=== PATIENT | female | born 1960 | race Caucasian/White ===

== ENCOUNTER 2017-11-26 21:03 | Emergency (ER) | payer MEDICAID ==
[2017-11-26] MEDS ORDERED: FAMOTIDINE 20 MG TABLET PO ONE (22:22)
[2017-11-26] MEDS ORDERED: ONDANSETRON HCL INJ/PF 4 MG/2 ML SDV IV ONE (22:22)
[2017-11-26] MEDS ORDERED: NORMAL SALINE 1000 ML 1,000 ML IV ONE (22:22)
--- NOTE | 2017-11-26 22:23 | ER Document Report ---
ED GI/ - General Chief Complaint: Nausea/Vomiting/Diarrhea Stated Complaint: NAUSEA Time Seen by Provider: 11/26/17 22:09 Notes: Patient is a 57-year-old female that comes emergency department for chief complaint of abdominal pain, nausea, an episode of vomiting, 3 episodes of loose stool. Pain is in both upper and lower abdomen. She reports chills earlier, denies fever. She states she is worried she is dehydrated and will not be able to take her medications for seizures at home, she is on Keppra, she used to be on Zofran but ran out. She denies chest pain, headache, difficulty breathing, flank pain. - Related Data Allergies/Adverse Reactions: codeine Allergy (Verified 11/26/17 21:08) erythromycin base Allergy (Verified 11/26/17 21:08) oxycodone [From Percocet] Allergy (Verified 11/26/17 21:08) Penicillins Allergy (Verified 11/26/17 21:08) Past Medical History - General Information source: Patient - Social History Smoking Status: Current Some Day Smoker Frequency of alcohol use: None Lives with: Alone Family History: Reviewed & Not Pertinent Patient has suicidal ideation: No Patient has homicidal ideation: No - Past Medical History Cardiac Medical History: Reports: Hx Hypertension Neurological Medical History: Reports: Hx Seizures Renal/ Medical History: Denies: Hx Peritoneal Dialysis - Immunizations Hx Diphtheria, Pertussis, Tetanus Vaccination: Yes Review of Systems - Review of Systems Constitutional: See HPI EENT: No symptoms reported Cardiovascular: No symptoms reported Respiratory: No symptoms reported Gastrointestinal: See HPI Genitourinary: No symptoms reported Female Genitourinary: No symptoms reported Musculoskeletal: No symptoms reported Skin: No symptoms reported Hematologic/Lymphatic: No symptoms reported Neurological/Psychological: No symptoms reported Physical Exam - Vital signs Vitals: Temp Pulse Resp BP Pulse Ox 98.5 F 57 L 20 105/62 98 11/26/17 21:18 11/26/17 21:18 11/26/17 21:18 11/26/17 21:18 11/26/17 21:18 - Notes Notes: GENERAL: Alert, interacts well. No acute distress. HEAD: Normocephalic, atraumatic. EYES: Pupils equal, round, and reactive to light. Extraocular movements intact. ENT: Oral mucosa very dry, oropharyngeal exam otherwise unremarkable. NECK: Full range of motion. Supple. Trachea midline. LUNGS: Clear to auscultation bilaterally, no wheezes, rales, or rhonchi. No respiratory distress. HEART: Regular rate and rhythm. Borderline bradycardia. No murmur ABDOMEN: Soft, non-tender. Non-distended. Bowel sounds present in all 4 quadrants. EXTREMITIES: Moves all 4 extremities spontaneously. No edema, normal radial and dorsalis pedis pulses bilaterally. No cyanosis. BACK: no cervical, thoracic, lumbar midline tenderness. No saddle anesthesia, normal distal neurovascular exam. NEUROLOGICAL: Alert and oriented x3. Normal speech. [cranial nerves II through XII grossly intact]. PSYCH: Normal affect, normal mood. SKIN: Warm, dry, normal turgor. No rashes or lesions noted. Course - Re-evaluation Re-evalutation: Patient does have very dry mucous membranes, however she is alert, very talkative, smiling, well-appearing. Soft benign abdomen. Unremarkable examination otherwise. No tachycardia, hypotension, or fever. CBC unremarkable, chemistry unremarkable except for mildly elevated BUN, creatinine is normal. Urinalysis shows elevated specific gravity but is unremarkable otherwise. On reevaluation patient states she is feeling much better, she is tolerating p.o. without any difficulty, asymptomatic. Clinical picture most suggestive of viral syndrome. Patient was unable to provide stool sample for testing. Very low suspicion of acute abdomen based on her exam, no other complaints, otherwise unremarkable exam. Providing with medications, discussed expectations and return precautions, discussed follow-up. Patient states understanding and agreement. - Vital Signs Vital signs: Temp Pulse Resp BP Pulse Ox 98.5 F 57 L 20 105/62 98 11/26/17 21:18 11/26/17 21:18 11/26/17 21:18 11/26/17 21:18 11/26/17 21:18 - Laboratory Result Diagrams: 11/26/17 22:55 11/26/17 22:55 Laboratory results interpreted by me: 11/26/17 11/26/17 11/26/17 22:55 22:55 22:55 RDW 14.3 H Seg Neutrophils % 86.1 H Lymphocytes % 7.6 L Chloride 108 H Carbon Dioxide 20 L Glucose 113 H Urine Protein 30 H Urine Urobilinogen 2.0 H Discharge - Discharge Clinical Impression: Nausea vomiting and diarrhea, Dehydration Condition: Stable Disposition: HOME, SELF-CARE Additional Instructions: Your workup is most suggestive of dehydration from viral illness. This should resolve with time. Take Zofran as prescribed, take Pepcid, start with bland food and slowly progress. Follow-up with primary care. Return if you worsen including spiking fever, uncontrolled vomiting, severe abdominal pain, swelling of the abdomen, or any other concerning or worsening symptoms. Prescriptions: Ondansetron [Zofran Odt 4 mg Tablet] 1 - 2 tab PO Q4H PRN #20 tab.rapdis PRN Reason: For Nausea/Vomiting Referrals: SHABBIR CAVRAJAL MD [[facility]] - Follow up as needed
[2017-11-26 23:16] LABS: ABSOLUTE EOSINOPHILS # (AUTO) 0.1 10^3/uL (0.0-0.6); ABSOLUTE LYMPHOCYTES (AUTO) 0.7 10^3/uL (0.5-4.7); ABSOLUTE MONOCYTES (AUTO) 0.4 10^3/uL (0.1-1.4); ABSOLUTE NEUT (AUTO) 7.8 10^3/uL (1.7-8.2); BASOPHILS % (AUTO) 0.4 % (0-2); EOSINOPHILS % (AUTO) 1.5 % (0-6); HEMATOCRIT 40.2 % (36.0-47.0); HEMOGLOBIN 13.7 g/dL (12.0-15.5); LYMPHOCYTES % (AUTO) 7.6 % (13-45); MEAN CORPUSCULAR HEMOGLOBIN 30.9 pg (27.0-33.4); MEAN CORPUSCULAR HGB CONC 34.1 g/dL (32.0-36.0); MEAN CORPUSCULAR VOLUME 91 fl (80-97); MONOCYTES % (AUTO) 4.4 % (3-13); PLATELET COUNT 269 10^3/uL (150-450); RED BLOOD COUNT 4.44 10^6/uL (3.72-5.28); RED CELL DISTRIBUTION WIDTH 14.3 % (11.5-14.0); SEGMENTED NEUTROPHILS % (AUTO) 86.1 % (42-78); TOTAL CELLS COUNTED % (AUTO) 100 %; WHITE BLOOD COUNT 9.1 10^3/uL (4.0-10.5)
[2017-11-26 23:31] LABS: ALANINE AMINOTRANSFERASE 42 U/L (9-52); ALKALINE PHOSPHATASE 86 U/L (38-126); ANION GAP 14 (5-19); ASPARTATE AMINO TRANSFERASE 28 U/L (14-36); BILIRUBIN,DIRECT 0.2 mg/dL (0.0-0.4); BILIRUBIN,TOTAL 0.6 mg/dL (0.2-1.3); BLOOD UREA NITROGEN 13 mg/dL (7-20); CALCIUM 9.3 mg/dL (8.4-10.2); CARBON DIOXIDE 20 mmol/L (22-30); CHLORIDE 108 mmol/L (98-107); GLUCOSE 113 mg/dL (75-110); LIPASE 49.1 U/L (23-300); POTASSIUM 3.8 mmol/L (3.6-5.0); TOTAL PROTEIN 6.9 g/dL (6.3-8.2)
[2017-11-26 23:32] LABS: APPEARANCE,URINE SLIGHTLY-CLOUDY; BILIRUBIN,URINE NEGATIVE (NEGATIVE); COLOR,URINE YELLOW; GLUCOSE, URINE NEGATIVE (NEGATIVE); KETONES,URINE NEGATIVE (NEGATIVE); LEUKOCYTE ESTERASE,URINE NEGATIVE (NEGATIVE); NITRITE,URINE NEGATIVE (NEGATIVE); PROTEIN,URINE 30 mg/dL (NEGATIVE); URINE SPECIFIC GRAVITY 1.025
[2017-11-26] MEDS ORDERED: NORMAL SALINE 1000 ML 500 ML IV ONE (23:34)
[2017-11-27] MEDS ORDERED: ONDANSETRON ODT 4 MG TAB (6 TAB/ER DISP) PO PRN (01:02)
[2017-11-27 02:43] VITALS: BP 101/74
== END 2017-11-27 02:22 | disposition home or self-care (01) ==
LOC: ER 21:03
DX: R11.2 Nausea with vomiting, unspecified (principal); R19.7 Diarrhea, unspecified; E86.0 Dehydration; R10.9 Unspecified abdominal pain; F17.200 Nicotine dependence, unspecified, uncomplicated; I10 Essential (primary) hypertension; Z88.6 Allergy status to analgesic agent; Z88.3 Allergy status to other anti-infective agents
CPT/HCPCS: 99284; 96361; 96374; 36415; 83690; 85025; 80053; 81001; J3490; J2405; J7030 ×2

== ENCOUNTER 2018-01-18 21:48 | Emergency (ER) | payer MEDICAID, OTHER ==
[2018-01-18] MEDS ORDERED: ASPIRIN 81 MG TABLET, CHEWABLE PO ONE (22:43)
--- NOTE | 2018-01-18 22:52 | ER Document Report ---
ED General - General Chief Complaint: Anxiety Stated Complaint: CHEST PAIN Time Seen by Provider: 01/18/18 22:09 Mode of Arrival: Stretcher Information source: Patient TRAVEL OUTSIDE OF THE [place] IN LAST 30 DAYS: No - HPI Patient complains to provider of: Chest pain Onset: Just prior to arrival Onset/Duration: Sudden Quality of pain: Achy Severity: Mild Associated symptoms: None Similar symptoms previously: Yes Recently seen / treated by doctor: No Notes: Patient is a 57-year-old female presenting to the emergency room today complaining of chest pain that started while having an argument with her sister , when I asked patient what brought her to the emergency room today she started by telling me that back in April she had a knee injury, she went on to provide me great detail as to how it was that she was living in a second floor apartment but because of the knee injury had to move to a first floor apartment and then had some issues with neighbors which forced her to move in with her ex- [id number], when she had an interaction with her niece today apparently her sister started an argument with her regarding this, patient had to be redirected several times to provide me details related to her presentation in the emergency department today, she does report that she has had several episodes of similar chest pain in the past that are brought on by stress or anxiety related to having an argument with someone, she denies any symptoms at the present time, she does tell me that she was previously on a medication secondary to "an irregular heartbeat", but she has since stopped taking that medication because it made her heart rate too low, she denies any shortness of breath today, no nausea, vomiting or diarrhea, no fever or chills, no cough, cold or congestion - Related Data Allergies/Adverse Reactions: codeine Allergy (Verified 01/18/18 21:54) erythromycin base Allergy (Verified 01/18/18 21:54) oxycodone [From Percocet] Allergy (Verified 01/18/18 21:54) Penicillins Allergy (Verified 01/18/18 21:54) Past Medical History - General Information source: Patient - Social History Smoking Status: Current Every Day Smoker Chew tobacco use (# tins/day): No Frequency of alcohol use: None Drug Abuse: None Family History: Reviewed & Not Pertinent Patient has suicidal ideation: No Patient has homicidal ideation: No - Past Medical History Cardiac Medical History: Reports: Hx Hypertension Neurological Medical History: Reports: Hx Seizures Renal/ Medical History: Denies: Hx Peritoneal Dialysis Past Surgical History: Reports: Hx Orthopedic Surgery - left knee - Immunizations Hx Diphtheria, Pertussis, Tetanus Vaccination: Yes Review of Systems - Review of Systems Constitutional: No symptoms reported EENT: No symptoms reported Cardiovascular: See HPI Respiratory: No symptoms reported Gastrointestinal: No symptoms reported Genitourinary: No symptoms reported Female Genitourinary: No symptoms reported Musculoskeletal: No symptoms reported Skin: No symptoms reported Hematologic/Lymphatic: No symptoms reported Neurological/Psychological: See HPI -: Yes All other systems reviewed and negative Physical Exam - Vital signs Vitals: Resp Pulse Ox 19 94 01/18/18 21:52 01/18/18 21:52 Interpretation: Normal - General General appearance: Appears well, Alert - HEENT Head: Normocephalic, Atraumatic Eyes: Normal Pupils: PERRL - Respiratory Respiratory status: No respiratory distress Chest status: Nontender Breath sounds: Normal Chest palpation: Normal - Cardiovascular Rhythm: Regular Heart sounds: Normal auscultation Murmur: No - Abdominal Inspection: Normal Distension: No distension Bowel sounds: Normal Tenderness: Nontender Organomegaly: No organomegaly - Back Back: Normal, Nontender - Extremities General upper extremity: Normal inspection, Nontender, Normal color, Normal ROM , Normal temperature General lower extremity: Normal inspection, Nontender, Normal color, Normal ROM , Normal temperature, Normal weight bearing. No: Char's sign - Neurological Neuro grossly intact: Yes Cognition: Normal Orientation: AAOx4 Maximus Coma Scale Eye Opening: Spontaneous [place] Coma Scale Verbal: Oriented Maximus Coma Scale Motor: Obeys Commands Maximus Coma Scale Total: 15 Speech: Normal Motor strength normal: LUE, RUE, LLE, RLE Sensory: Normal - Psychological Associated symptoms: Tangential speech - Skin Skin Temperature: Warm Skin Moisture: Dry Skin Color: Normal Course - Re-evaluation Re-evalutation: 01/19/18 00:19 Patient resting comfortably with stable vital signs, she has had no further episodes of chest pain since being in the emergency department, symptoms likely secondary to anxiety or stress due to argument with her sister, patient will be discharged with instructions for follow-up and advised to return if any additional concerns, patient acknowledges understanding and agreement with this plan - Vital Signs Vital signs: Temp Pulse Resp BP Pulse Ox 16 114/74 96 01/18/18 22:01 01/18/18 22:01 01/18/18 22:01 - Laboratory Result Diagrams: 01/18/18 23:15 01/18/18 23:15 Laboratory results interpreted by me: 01/18/18 23:15 RDW 14.3 H - Diagnostic Test Radiology reviewed: Image reviewed, Reports reviewed - EKG Interpretation by Me EKG shows normal: Sinus rhythm Rate: Normal Rhythm: NSR Discharge - Discharge Clinical Impression: Chest pain Qualifiers: Chest pain type: unspecified Qualified Code(s): R07.9 - Chest pain, unspecified Condition: Stable Disposition: HOME, SELF-CARE Instructions: Anxiety ([facility]), Chest Pain of Unclear Cause ([facility]) Additional Instructions: Follow up with your primary care provider in one to 2 days. Return to the emergency room immediately if symptoms worsen or any additional concerns.
[2018-01-18 23:24] LABS: ABSOLUTE EOSINOPHILS # (AUTO) 0.1 10^3/uL (0.0-0.6); ABSOLUTE LYMPHOCYTES (AUTO) 1.9 10^3/uL (0.5-4.7); ABSOLUTE MONOCYTES (AUTO) 0.4 10^3/uL (0.1-1.4); ABSOLUTE NEUT (AUTO) 5.3 10^3/uL (1.7-8.2); BASOPHILS % (AUTO) 0.6 % (0-2); EOSINOPHILS % (AUTO) 1.7 % (0-6); HEMATOCRIT 38.2 % (36.0-47.0); LYMPHOCYTES % (AUTO) 24.6 % (13-45); MEAN CORPUSCULAR HEMOGLOBIN 30.7 pg (27.0-33.4); MEAN CORPUSCULAR VOLUME 90 fl (80-97); MONOCYTES % (AUTO) 5.5 % (3-13); PLATELET COUNT 284 10^3/uL (150-450); RED BLOOD COUNT 4.24 10^6/uL (3.72-5.28); RED CELL DISTRIBUTION WIDTH 14.3 % (11.5-14.0); SEGMENTED NEUTROPHILS % (AUTO) 67.6 % (42-78); TOTAL CELLS COUNTED % (AUTO) 100 %; WHITE BLOOD COUNT 7.8 10^3/uL (4.0-10.5)
[2018-01-18 23:37] LABS: ALANINE AMINOTRANSFERASE 38 U/L (9-52); ALBUMIN 4.4 g/dL (3.5-5.0); ALKALINE PHOSPHATASE 90 U/L (38-126); ANION GAP 11 (5-19); ASPARTATE AMINO TRANSFERASE 30 U/L (14-36); BILIRUBIN,DIRECT 0.1 mg/dL (0.0-0.4); BILIRUBIN,TOTAL 0.4 mg/dL (0.2-1.3); BLOOD UREA NITROGEN 10 mg/dL (7-20); CALCIUM 9.7 mg/dL (8.4-10.2); CARBON DIOXIDE 27 mmol/L (22-30); CHLORIDE 102 mmol/L (98-107); CREATINE KINASE 55 U/L (30-135); GLUCOSE 84 mg/dL (75-110); POTASSIUM 4.4 mmol/L (3.6-5.0); SODIUM 140.3 mmol/L (137-145); TOTAL PROTEIN 7.2 g/dL (6.3-8.2)
--- NOTE | 2018-01-18 23:42 | RADIOLOGY REPORT (SQ) ---
EXAM DESCRIPTION: XR CHEST 1 VIEW COMPLETED DATE/TME: 01/18/2018 22:43 EXAM DESCRIPTION: Single view of the chest CLINICAL HISTORY: cp COMPARISON: None. FINDINGS: Single frontal view of the chest. The cardiomediastinal silhouette has normal size and contour. No consolidation, pneumothorax, or pleural effusion. Dextroconvex scoliosis of the thoracic spine. Leads overlie the chest. Upper abdominal soft tissues are unremarkable. IMPRESSION: 1. No acute pulmonary process identified.
[2018-01-18 23:53] LABS: CREATINE KINASE MB 1.03 ng/mL (<4.55)
[2018-01-18 23:55] LABS: TROPONIN I < 0.012 ng/mL
[2018-01-19 01:10] VITALS: BP 128/85
--- NOTE | 2018-01-19 07:24 | EKG REPORT ---
SEVERITY:- NORMAL ECG - SINUS RHYTHM : Confirmed by: Otis Webber MD 19-Jan-2018 07:23:32
== END 2018-01-19 01:00 | disposition home or self-care (01) ==
LOC: ER 21:48
DX: R07.9 Chest pain, unspecified (principal); F41.9 Anxiety disorder, unspecified; F17.200 Nicotine dependence, unspecified, uncomplicated; I10 Essential (primary) hypertension
CPT/HCPCS: 36415; 71045; 80053; 82550; 82553; 84484; 85025; 93005; 93010; 99284

== ENCOUNTER → 2018-05-18 | Outpatient (CLI) | payer MEDICAID, OTHER | LOC: NEURO 12:41 | PROVIDERS: ATTEND Pediatrics | DX: G40.802 Other epilepsy, not intractable, without status epilepticus (principal); Z53.8 Procedure and treatment not carried out for other reasons ==

== ENCOUNTER 2018-11-15 06:25 | Day surgery (SDC) | payer MEDICAID ==
[2018-11-08 09:22] LABS: APPEARANCE,URINE CLEAR; BILIRUBIN,URINE NEGATIVE (NEGATIVE); COLOR,URINE YELLOW; GLUCOSE, URINE NEGATIVE (NEGATIVE); KETONES,URINE NEGATIVE (NEGATIVE); LEUKOCYTE ESTERASE,URINE NEGATIVE (NEGATIVE); NITRITE,URINE NEGATIVE (NEGATIVE); PROTEIN,URINE NEGATIVE (NEGATIVE); URINE SPECIFIC GRAVITY 1.006; UROBILINOGEN,URINE NEGATIVE mg/dL (<2.0)
[2018-11-08 09:31] LABS: HEMATOCRIT 37.8 % (36.0-47.0); HEMOGLOBIN 12.8 g/dL (12.0-15.5); MEAN CORPUSCULAR HEMOGLOBIN 32.1 pg (27.0-33.4); MEAN CORPUSCULAR HGB CONC 33.7 g/dL (32.0-36.0); MEAN CORPUSCULAR VOLUME 95 fl (80-97); PLATELET COUNT 279 10^3/uL (150-450); RED BLOOD COUNT 3.97 10^6/uL (3.72-5.28); RED CELL DISTRIBUTION WIDTH 14.4 % (11.5-14.0); WHITE BLOOD COUNT 3.9 10^3/uL (4.0-10.5)
--- NOTE | 2018-11-08 09:45 | RADIOLOGY REPORT (SQ) ---
EXAM DESCRIPTION: CHEST PA/LATERAL COMPLETED DATE/TIME: 11/08/2018 9:34 am REASON FOR STUDY: PREOP COMPARISON: 07/03/2018 EXAM PARAMETERS: NUMBER OF VIEWS: two views TECHNIQUE: Digital Frontal and Lateral radiographic views of the chest acquired. RADIATION DOSE: NA LIMITATIONS: none FINDINGS: LUNGS AND PLEURA: No opacities, masses or pneumothorax. No pleural effusion. MEDIASTINUM AND HILAR STRUCTURES: No masses or contour abnormalities. HEART AND VASCULAR STRUCTURES: Heart normal size. No evidence for failure. BONES: Dextroconvex thoracic curvature, stable. No acute bony findings. HARDWARE: None in the chest. OTHER: No other significant finding. IMPRESSION: No evidence of acute cardiopulmonary process. TECHNICAL DOCUMENTATION: JOB ID: [id number] [employer]- All Rights Reserved Reading location - IP/workstation name: [email or web address]
[2018-11-08 10:02] LABS: ANION GAP 9 (5-19); BLOOD UREA NITROGEN 14 mg/dL (7-20); CALCIUM 9.4 mg/dL (8.4-10.2); CARBON DIOXIDE 29 mmol/L (22-30); CHLORIDE 100 mmol/L (98-107); GLUCOSE 76 mg/dL (75-110); POTASSIUM 4.9 mmol/L (3.6-5.0)
--- NOTE | 2018-11-08 12:16 | EKG REPORT ---
SEVERITY:- NORMAL ECG - SINUS RHYTHM : Confirmed by: Otis Webber MD 08-Nov-2018 12:16:02
[~2018-11-15 06:25] MED LIST: CLINDAMYCIN 600 MG/D5W RTU 600 MG/50 ML RTUPB IV PRN; LACTATED RINGERS 1000 ML IV PRN; LIDOCAINE 0.5% INJ-PF (5 MG/ML) 50 ML SDV SUBCUT PRN
[2018-11-15] MEDS ORDERED: CLINDAMYCIN 600 MG/D5W RTU 600 MG/50 ML RTUPB IV ONE (06:48)
[2018-11-15] MEDS ORDERED: MIDAZOLAM 2 MG/2 ML INJ ONE (07:04)
[2018-11-15] MEDS ORDERED: DEXAMETHASONE SOD PHOSPHATE INJ 4 MG/1 ML VIAL ONE (07:04)
[2018-11-15] MEDS ORDERED: ONDANSETRON HCL INJ/PF 4 MG/2 ML SDV ONE (07:04)
[2018-11-15] MEDS ORDERED: FENTANYL CITRATE INJ/PF 100 MCG/2 ML AMPUL ONE (07:04)
[2018-11-15] MEDS ORDERED: PROPOFOL INJ 200 MG/20 ML VIAL IV ONE (07:04)
[2018-11-15] MEDS ORDERED: BUPIVACAINE HCL 0.5%-EPI 1:200000 INJ/PF 30 ML VIAL ONE (08:23)
[2018-11-15] MEDS ORDERED: LIDOCAINE 1% INJ-PF (10 MG/ML) 30 ML SDV ONE (09:43)
[2018-11-15] MEDS ORDERED: MEPERIDINE HCL/PF INJ 25 MG/1 ML DISP.SYRIN IV PRN (09:46)
[2018-11-15] MEDS ORDERED: PROMETHAZINE HCL INJ 25 MG/1 ML VIAL IV PRN ×2 (09:46)
[2018-11-15] MEDS ORDERED: FENTANYL CITRATE INJ/PF 100 MCG/2 ML AMPUL IV PRN ×3 (09:46)
[2018-11-15] MEDS ORDERED: DIPHENHYDRAMINE HCL 50 MG/ML VIAL IV PRN (09:46)
--- NOTE | 2018-11-15 10:01 | Discharge Summary ---
Discharge Summary (SDC) - Discharge Final Diagnosis: Retained hardware left patella Date of Surgery: 11/15/18 Discharge Date: 11/15/18 Condition: Good Treatment or Instructions: Weightbearing as tolerated ambulation. Remove compressive wrap on Tuesday. Underlying OpSite dressing can be left in place until you return to the office. Prescriptions: Oxycodone HCl/Acetaminophen [Percocet 5-325 mg Tablet] 1 tab PO Q6 PRN #25 tab PRN Reason: Referrals: SHAYAN CALIX MD [Primary Care Provider] - Discharge Diet: As Tolerated, Regular Respiratory Treatments at Home: Deep Breathing/Coughing Discharge Activity: Balance Activity w/Rest, No tub bath Home Care Assistance: None Needed Report the Following to Your Physician Immediately: Shortness of Breath, Fever over 101 Degrees, Drainage-Foul Smelling
--- NOTE | 2018-11-15 10:03 | Operative Report ---
Operative Report DATE OF SURGERY: 11/15/18 PREOPERATIVE DIAGNOSIS: Retained hardware left knee status post ORIF of a jasmine la fracture with overlying skin erosion OPERATION: Hardware removal left knee SURGEON: LOLA FIGUEROA ANESTHESIA: LMAC TISSUE REMOVED OR ALTERED: Hardware to CSS ESTIMATED BLOOD LOSS: Minimal PROCEDURE: With the patient supine on the operating table left lower extremities prepped and draped in sterile fashion. The skin overlying the left patella is infiltrated with a combination of Marcaine, Xylocaine, and epinephrine in line with the previous midline surgical approach to the knee. A longitudinal incision was then made and blunt dissection was used to expose the proximal and distal aspects of the transosseous K wires. The proximal aspect of the K wire that contains the band is cut with a pin cutter and then the pins are removed through the distal aspect of the patella. The [id number] wire is then cut in half and removed uneventfully. At this point the wound is irrigated. Is closed using interrupted Vicryl followed by nylon. A sterile compressive dressing was applied and the patient's return to the PACU in satisfactory condi tion.
--- NOTE | 2018-11-15 12:06 | RADIOLOGY REPORT (SQ) ---
EXAM DESCRIPTION: NO CHG FLUORO; KNEE LEFT 2 VIEWS COMPLETED DATE/TIME: 11/15/2018 11:15 am REASON FOR STUDY: LEFT KNEE HARDWARE REMOVAL ASST WITH FLUORO IN OR S82.012A DISPLACED OSTEOCHONDRA L FRACTURE OF LEFT PATELLA, I COMPARISON: None. FLUOROSCOPY TIME: 9 seconds 2 images saved to PACS. TECHNIQUE: Intra-operative images acquired during surgical procedure to evaluate progress. NUMBER OF IMAGES: 2 LIMITATIONS: None. FINDINGS: Intraoperative fluoroscopic images obtained to evaluate surgical progress. Please see ope rative report for detailed description of the procedure. IMPRESSION: IMAGE(S) OBTAINED DURING PROCEDURE. COMMENT: Quality ID [id number]: Final reports for procedures using fluoroscopy that document radiation exp osure indices, or exposure time and number of fluorographic images (if radiation exposure indices are not available) Please consult full operative report of the attending physician for description of the procedure. TECHNICAL DOCUMENTATION: JOB ID: [id number] [employer]- All Rights Reserved Reading location - IP/workstation name: [email or web address]
--- NOTE | 2018-11-15 12:06 | RADIOLOGY REPORT (SQ) ---
EXAM DESCRIPTION: NO CHG FLUORO; KNEE LEFT 2 VIEWS COMPLETED DATE/TIME: 11/15/2018 11:15 am REASON FOR STUDY: LEFT KNEE HARDWARE REMOVAL ASST WITH FLUORO IN OR S82.012A DISPLACED OSTEOCHONDRA L FRACTURE OF LEFT PATELLA, I COMPARISON: None. FLUOROSCOPY TIME: 9 seconds 2 images saved to PACS. TECHNIQUE: Intra-operative images acquired during surgical procedure to evaluate progress. NUMBER OF IMAGES: 2 LIMITATIONS: None. FINDINGS: Intraoperative fluoroscopic images obtained to evaluate surgical progress. Please see ope rative report for detailed description of the procedure. IMPRESSION: IMAGE(S) OBTAINED DURING PROCEDURE. COMMENT: Quality ID 145: Final reports for procedures using fluoroscopy that document radiation exp osure indices, or exposure time and number of fluorographic images (if radiation exposure indices are not available) Please consult full operative report of the attending physician for description of the procedure. TECHNICAL DOCUMENTATION: JOB ID: [id number] [employer]- All Rights Reserved Reading location - IP/workstation name: [email or web address]
[2018-11-15 13:35] VITALS: BP 120/57
== END 2018-11-15 12:10 | disposition home or self-care (01) ==
LOC: EEVIPCON 06:25 → OROUT 06:25
PROVIDERS: ATTEND Orthopaedic Surgery
DX: T84.84XA Pain due to internal orthopedic prosthetic devices, implants and grafts, initial encounter (principal); Y83.8 Other surgical procedures as the cause of abnormal reaction of the patient, or of later complication, without mention of misadventure at the time of the procedure; I10 Essential (primary) hypertension; G40.909 Epilepsy, unspecified, not intractable, without status epilepticus; F17.210 Nicotine dependence, cigarettes, uncomplicated; I49.9 Cardiac arrhythmia, unspecified; Z79.82 Long term (current) use of aspirin; Z79.899 Other long term (current) drug therapy; Z86.73 Personal history of transient ischemic attack (TIA), and cerebral infarction without residual deficits
CPT/HCPCS: 93005; 36415; 85027; 80048; 81001; 71046; 73560; 93010; 01480; 20680; J2250; S0077; J3490 ×2; J1100; J2405; J2704; J3010

== ENCOUNTER → 2018-11-27 | Outpatient (CLI) | payer MEDICAID ==
[2018-11-27 12:58] LABS: ABSOLUTE EOSINOPHILS # (AUTO) 0.1 10^3/uL (0.0-0.6); ABSOLUTE LYMPHOCYTES (AUTO) 1.7 10^3/uL (0.5-4.7); ABSOLUTE MONOCYTES (AUTO) 0.3 10^3/uL (0.1-1.4); ABSOLUTE NEUT (AUTO) 3.9 10^3/uL (1.7-8.2); BASOPHILS % (AUTO) 0.3 % (0-2); HEMATOCRIT 36.7 % (36.0-47.0); HEMOGLOBIN 12.4 g/dL (12.0-15.5); LYMPHOCYTES % (AUTO) 28.8 % (13-45); MEAN CORPUSCULAR HEMOGLOBIN 31.8 pg (27.0-33.4); MEAN CORPUSCULAR HGB CONC 33.7 g/dL (32.0-36.0); MEAN CORPUSCULAR VOLUME 94 fl (80-97); MONOCYTES % (AUTO) 5.6 % (3-13); PLATELET COUNT 235 10^3/uL (150-450); RED BLOOD COUNT 3.89 10^6/uL (3.72-5.28); RED CELL DISTRIBUTION WIDTH 14.3 % (11.5-14.0); SEGMENTED NEUTROPHILS % (AUTO) 64.3 % (42-78); TOTAL CELLS COUNTED % (AUTO) 100 %
[2018-11-27 13:20] LABS: ALBUMIN 4.2 g/dL (3.5-5.0); ALKALINE PHOSPHATASE 108 U/L (38-126); ANION GAP 10 (5-19); ASPARTATE AMINO TRANSFERASE 34 U/L (14-36); BILIRUBIN,DIRECT 0.3 mg/dL (0.0-0.4); BILIRUBIN,TOTAL 0.4 mg/dL (0.2-1.3); BLOOD UREA NITROGEN 12 mg/dL (7-20); CALCIUM 9.3 mg/dL (8.4-10.2); CARBON DIOXIDE 27 mmol/L (22-30); CHLORIDE 102 mmol/L (98-107); GLUCOSE 91 mg/dL (75-110); POTASSIUM 4.9 mmol/L (3.6-5.0); TOTAL PROTEIN 7.1 g/dL (6.3-8.2)
== END ==
LOC: OD 12:05
PROVIDERS: ATTEND Family Medicine
DX: R53.83 Other fatigue (principal)
CPT/HCPCS: 36415; 80053; 82306; 82607; 84443; 85025

== ENCOUNTER → 2018-12-06 | Outpatient (CLI) | payer MEDICAID, OTHER | LOC: WI 08:57 | PROVIDERS: ATTEND Family Medicine | DX: Z12.31 Encounter for screening mammogram for malignant neoplasm of breast (principal) | CPT/HCPCS: 77063; 77067 ==

== ENCOUNTER 2019-01-15 10:47 | Emergency (ER) | payer MEDICAID ==
[2019-01-15 11:43] LABS: ABSOLUTE LYMPHOCYTES (AUTO) 1.5 10^3/uL (0.5-4.7); ABSOLUTE MONOCYTES (AUTO) 0.3 10^3/uL (0.1-1.4); ABSOLUTE NEUT (AUTO) 3.8 10^3/uL (1.7-8.2); BASOPHILS % (AUTO) 0.7 % (0-2); EOSINOPHILS % (AUTO) 0.6 % (0-6); HEMATOCRIT 36.1 % (36.0-47.0); HEMOGLOBIN 11.9 g/dL (12.0-15.5); LYMPHOCYTES % (AUTO) 25.8 % (13-45); MEAN CORPUSCULAR HEMOGLOBIN 31.3 pg (27.0-33.4); MEAN CORPUSCULAR HGB CONC 32.9 g/dL (32.0-36.0); MEAN CORPUSCULAR VOLUME 95 fl (80-97); PLATELET COUNT 273 10^3/uL (150-450); RED BLOOD COUNT 3.81 10^6/uL (3.72-5.28); RED CELL DISTRIBUTION WIDTH 15.6 % (11.5-14.0); SEGMENTED NEUTROPHILS % (AUTO) 67.9 % (42-78); TOTAL CELLS COUNTED % (AUTO) 100 %; WHITE BLOOD COUNT 5.7 10^3/uL (4.0-10.5)
[2019-01-15 11:44] LABS: APPEARANCE,URINE CLEAR; BILIRUBIN,URINE NEGATIVE (NEGATIVE); COLOR,URINE STRAW; GLUCOSE, URINE NEGATIVE (NEGATIVE); KETONES,URINE NEGATIVE (NEGATIVE); LEUKOCYTE ESTERASE,URINE NEGATIVE (NEGATIVE); NITRITE,URINE NEGATIVE (NEGATIVE); PROTEIN,URINE NEGATIVE (NEGATIVE); URINE SPECIFIC GRAVITY 1.001; UROBILINOGEN,URINE NEGATIVE mg/dL (<2.0)
[2019-01-15 12:02] LABS: ALBUMIN 4.4 g/dL (3.5-5.0); ALKALINE PHOSPHATASE 91 U/L (38-126); ANION GAP 11 (5-19); ASPARTATE AMINO TRANSFERASE 29 U/L (14-36); BILIRUBIN,DIRECT 0.1 mg/dL (0.0-0.4); BILIRUBIN,TOTAL 0.3 mg/dL (0.2-1.3); BLOOD UREA NITROGEN 6 mg/dL (7-20); CALCIUM 9.6 mg/dL (8.4-10.2); CARBON DIOXIDE 22 mmol/L (22-30); CHLORIDE 106 mmol/L (98-107); GLUCOSE 102 mg/dL (75-110); POTASSIUM 4.2 mmol/L (3.6-5.0); TOTAL PROTEIN 7.4 g/dL (6.3-8.2)
--- NOTE | 2019-01-15 12:12 | ER Document Report ---
ED General - General Chief Complaint: Nausea/Vomiting/Diarrhea Stated Complaint: NAUSEA Time Seen by Provider: 01/15/19 11:52 Primary Care Provider: SHAYAN CALIX MD [Primary Care Provider] - Follow up as needed Mode of Arrival: Medic Information source: Patient TRAVEL OUTSIDE OF THE [place] IN LAST 30 DAYS: No - HPI Patient complains to provider of: N/V/D Onset: This morning - Pt. was recently started on slow release keppra for her seizures. She feels she is having an adverse reaction to this medication as she has been having N/V/D for the past 2-3 days. She called EMS this am and was transported here for further evaluation. She was given Zofran en route. - Related Data Allergies/Adverse Reactions: codeine Allergy (Verified 01/15/19 10:53) STILL - so bad it caused a seizure, eye swelling erythromycin base Allergy (Verified 01/15/19 10:53) rash oxycodone [From Percocet] Allergy (Verified 01/15/19 10:53) emesis Penicillins Allergy (Verified 01/15/19 10:53) rash Steroids Allergy (Uncoded 01/15/19 10:53) Tachycardia Bandaids Adverse Reaction (Uncoded 01/15/19 10:53) Rash if left on too long Surgical tape Adverse Reaction (Uncoded 01/15/19 10:53) rash Past Medical History - General Information source: Patient - Social History Smoking Status: Current Every Day Smoker Family History: Reviewed & Not Pertinent Patient has suicidal ideation: No Patient has homicidal ideation: No - Past Medical History Cardiac Medical History: Reports: Hx Hypertension Denies: Hx Coronary Artery Disease, Hx Heart Attack Pulmonary Medical History: Reports: Hx Asthma - Not using medications until they find source of tachycardia , Hx Pneumonia - A few times Denies: Hx Bronchitis, Hx COPD Neurological Medical History: Reports: Hx Seizures. Denies: Hx Cerebrovascular Accident Renal/ Medical History: Denies: Hx Peritoneal Dialysis Musculoskeletal Medical History: Denies Hx Arthritis Past Surgical History: Reports: Hx Orthopedic Surgery - left knee - Immunizations Hx Diphtheria, Pertussis, Tetanus Vaccination: Yes Review of Systems - Review of Systems Constitutional: No symptoms reported EENT: No symptoms reported Cardiovascular: No symptoms reported Respiratory: No symptoms reported Gastrointestinal: See HPI, Diarrhea, Nausea, Vomiting Musculoskeletal: No symptoms reported Neurological/Psychological: No symptoms reported -: Yes All other systems reviewed and negative Physical Exam - Vital signs Vitals: Temp Pulse Resp BP Pulse Ox 97.6 F 76 16 122/79 100 01/15/19 10:47 01/15/19 10:47 01/15/19 10:47 01/15/19 10:47 01/15/19 10:47 - General General appearance: Appears well In distress: None - HEENT Pupils: PERRL Mucous membranes: Normal Pharynx: Normal Neck: Normal - Respiratory Respiratory status: No respiratory distress Breath sounds: Normal - Cardiovascular Rhythm: Regular Heart sounds: Normal auscultation Murmur: No - Abdominal Inspection: Normal Bowel sounds: Normal Tenderness: Nontender Organomegaly: No organomegaly - Extremities General upper extremity: Normal inspection General lower extremity: Normal inspection - Neurological Neuro grossly intact: Yes Cognition: Normal Orientation: AAOx4 Course - Re-evaluation Re-evalutation: 01/15/19 12:40 Pt. feels better at the end of her W/U. No V/D in ED. Expressed desire to go home - Vital Signs Vital signs: Temp Pulse Resp BP Pulse Ox 97.6 F 76 15 112/81 98 01/15/19 10:47 01/15/19 10:47 01/15/19 11:31 01/15/19 11:31 01/15/19 11:31 - Laboratory Result Diagrams: 01/15/19 11:10 01/15/19 11:10 Laboratory results interpreted by me: 01/15/19 01/15/19 11:10 11:10 Hgb 11.9 L RDW 15.6 H BUN 6 L Discharge - Discharge Clinical Impression: Adverse effects of medication Qualifiers: Encounter type: initial encounter Qualified Code(s): T50.905A - Adverse effect of unspecified drugs, medicaments and biological substances, initial encounter Condition: Stable Disposition: HOME, SELF-CARE Instructions: Vomiting ([facility]) Additional Instructions: rest, take medications as prescribed, return if worse Prescriptions: Phenytoin Sodium Extended [Dilantin 100 mg Capsule.er] 100 mg PO Q8 #10 capsule Gabapentin [Neurontin 400 mg Capsule] 400 mg PO Q8 #10 capsule Referrals: SHAYAN CALIX MD [Primary Care Provider] - Follow up as needed
[2019-01-15 13:07] VITALS: BP 128/89
== END 2019-01-15 13:07 | disposition home or self-care (01) ==
LOC: ER 10:47
DX: T50.905A Adverse effect of unspecified drugs, medicaments and biological substances, initial encounter (principal); R11.2 Nausea with vomiting, unspecified; R19.7 Diarrhea, unspecified; X58.XXXA Exposure to other specified factors, initial encounter; F17.200 Nicotine dependence, unspecified, uncomplicated; I10 Essential (primary) hypertension; Z88.6 Allergy status to analgesic agent; Z88.3 Allergy status to other anti-infective agents; Z88.0 Allergy status to penicillin
CPT/HCPCS: 36415; 80053; 81001; 85025; 99284

== ENCOUNTER → 2019-01-30 | Outpatient (CLI) | payer MEDICAID ==
--- NOTE | 2019-01-30 14:03 | RADIOLOGY REPORT (SQ) ---
EXAM DESCRIPTION: KNEE RIGHT 3 VIEWS COMPLETED DATE/TIME: 01/30/2019 1:24 pm REASON FOR STUDY: RT MEDIAL KNEE PAIN M25.561 PAIN IN RIGHT KNEE COMPARISON: None. NUMBER OF VIEWS: Three views. TECHNIQUE: AP, lateral, and sunrise patella radiographic images acquired of the right knee. LIMITATIONS: None. FINDINGS: MINERALIZATION: Normal. BONES: No acute fracture or dislocation. No worrisome bone lesions. JOINT: No effusion. SOFT TISSUES: No soft tissue swelling. No radio-opaque foreign body. OTHER: No other significant finding. IMPRESSION: NEGATIVE STUDY OF THE RIGHT KNEE. NO RADIOGRAPHIC EVIDENCE OF ACUTE INJURY. TECHNICAL DOCUMENTATION: JOB ID: [id number] [employer]- All Rights Reserved Reading location - IP/workstation name: [email or web address]
== END ==
LOC: OD 13:07
PROVIDERS: ATTEND Family Medicine
DX: M25.561 Pain in right knee (principal)

== ENCOUNTER 2019-04-26 08:09 | Emergency (ER) | payer MEDICAID ==
--- NOTE | 2019-04-26 09:54 | ER Document Report ---
HPI - HPI Time Seen by Provider: 04/26/19 09:54 Pain Level: 5 Notes: 59-year-old female presents emergency room for complaints of right knee pain and swelling that has been bothering her intermittently since January 2019. Patient states her knee was evaluated by Dr. Duffy, sales recruitment specialist in [place] after she had hardware removed from her knee. Patient did do physical therapy for her knee at that time which did help, she states that she told Dr. Duffy ago that she was having right knee pain but there is no evaluation of her knee. Patient denies any recent trauma. States that she feels like her bones are "grinding" has not tried any yfsu-kfb-vokefod medication for the symptoms. Patient does ambulate around with use of a cane. Patient was advised by her primary care providers to get her knee evaluated in the emergency room. Patient states she has tried elevation and heat without for relief. denies any n/t down bilateral lower extremities. Denies fevers, chills, chest pain,palpitations, shortness of breath, dyspnea, nausea, vomiting, diarrhea, abdominal pain, hematuria,blurred vision, double vision, loss of vision, speech changes, LH, dizziness, syncope, headaches, wheezing, ST, URI, neck pain, weakness, bowel or bladder dysfunction, saddle anesthesia, numbness or tingling in bilateral upper or lower extremities equally, muscle paralysis, weakness in bilateral upper or lower extremities equally or rash. - EENT EENT: DENIES: Sore Throat, Ear Pain, Eye problems - NEURO Neurology: DENIES: Headache - CARDIOVASCULAR Cardiovascular: DENIES: Chest pain - RESPIRATORY Respiratory: DENIES: Trouble Breathing, Coughing - GASTROINTESTINAL Gastrointestinal: DENIES: Abdominal Pain, Black / Bloody Stools - MUSCULOSKELETAL Musculoskeletal: REPORTS: Extremity pain - see note Past Medical History - General Information source: Patient - Social History Smoking Status: Current Every Day Smoker Chew tobacco use (# tins/day): No Frequency of alcohol use: None Drug Abuse: None Family History: Reviewed & Not Pertinent Patient has suicidal ideation: No Patient has homicidal ideation: No - Past Medical History Cardiac Medical History: Reports: Hx Hypertension Denies: Hx Coronary Artery Disease, Hx Heart Attack Pulmonary Medical History: Reports: Hx Asthma - Not using medications until they find source of tachycardia , Hx Pneumonia - A few times Denies: Hx Bronchitis, Hx COPD Neurological Medical History: Reports: Hx Seizures. Denies: Hx Cerebrovascular Accident Renal/ Medical History: Denies: Hx Peritoneal Dialysis Musculoskeletal Medical History: Denies Hx Arthritis Past Surgical History: Reports: Hx Orthopedic Surgery - left knee - Immunizations Hx Diphtheria, Pertussis, Tetanus Vaccination: Yes Vertical Provider Document - CONSTITUTIONAL Agree With Documented VS: Yes Exam Limitations: No Limitations General Appearance: WD/WN Notes: PHYSICAL EXAMINATION: reviewed vital signs by RN GENERAL: Well-appearing, well-nourished and in no acute distress. HEAD: Atraumatic, normocephalic. EYES: Pupils equal round and reactive to light, extraocular movements intact, conjunctiva are normal. ENT: Nares patent, oropharynx clear without exudates. Moist mucous membranes. NECK: Normal range of motion, supple without lymphadenopathy LUNGS: Breath sounds clear to auscultation bilaterally and equal. No wheezes rales or rhonchi. HEART: Regular rate and rhythm without murmurs ABDOMEN: Soft, nontender, nondistended abdomen. No guarding, no rebound. No masses appreciated. Female : deferred Musculoskeletal: Normal range of motion, no pitting or edema. No cyanosis. Right knee pain with palpation to lateral aspect of knee with noted swelling. negative karlene's sign. anterior and posterior drawer test negative. noted pain with flexion and extension. Dtr + 2 in BLE. Full motor and sensory function to BLE equally. No open wounds. No induration or drainage. Strength 5 out of 5 bilaterally equally. Ankle examination normal. Squeeze test negative. Hip examination normal. Pulses + 2 bilaterally and equally.negative squeeze bilaterally and equally. NEUROLOGICAL: Cranial nerves grossly intact. Normal speech, normal gait. Normal sensory, motor exams PSYCH: Normal mood, normal affect. SKIN: Warm, Dry, normal turgor, no rashes or lesions noted. - INFECTION CONTROL TRAVEL OUTSIDE OF THE [place] IN LAST 30 DAYS: No Course - Re-evaluation Re-evalutation: 04/26/19 12:06 Afebrile vital stable no distress. Nurse's notes reviewed. Patient states that she has had this chronic pain since January 2019. Denies any trauma. X-rays negative for any acute fracture dislocation or bone lesions. Discussed with patient that she does need to keep a Esequiel bandage as well as a knee immobilizer to help support her knee as well as using a cane and she will have to follow-up with sales recruitment specialist for 7 synthetic cartilage injections and or possible surgery on her knee however this is up to the sales recruitment specialist. Patient given a knee immobilizer is so she can ambulate around with her cane. Patient given 30 mg Toradol IM for pain control. Advised to follow-up with her primary care provider as well as sales recruitment specialist, both referrals given. Patient did seem agreeable to this plan of care. Discussed with her that the sales recruitment specialist or primary care provider will decide if she needs any further imaging however at this time it is not indicated with her clinical presentation. after performing a Medical Screening Examination, I estimate there is LOW risk for OPEN FRACTURE, COMPARTMENT SYNDROME, DEEP VENOUS THROMBOSIS, ACUTE TENDON RUPTURE, or NEUROVASCULAR INJURY thus I consider the discharge disposition reasonable. I have reevaluated this patient multiple times and no significant life threatening changes are noted. The patient and I have discussed the diagnosis and risks, and we agree with discharging home to closely follow-up wi th their primary doctor or the referral orthopedist with the understanding that symptoms and presentations can change. We also discussed returning to the Emergency Department immediately if new or worsening symptoms occur. We have discussed the symptoms which are most concerning (e.g., changing or worsening pain, numbness, weakness) that necessitate immediate return 04/26/19 12:08 - Vital Signs Vital signs: Temp Pulse Resp BP Pulse Ox 97.6 F 79 16 132/63 H 98 04/26/19 08:26 04/26/19 08:26 04/26/19 08:26 04/26/19 08:26 04/26/19 08:26 Discharge - Discharge Clinical Impression: Right knee pain Condition: Stable Disposition: HOME, SELF-CARE Instructions: Ice & Elevation ([facility]), Knee Immobilizing Splint ([facility]) Additional Instructions: Your knee your knee x-ray your knee x-ray was negative for any acute fracture dislocation. Advised to wear immobilizer to help support your right knee. Alternating Tylenol and ibuprofen for pain control. Follow-up with sales recruitment specialist as well as primary care provider for further evaluation of your right knee pain. Return immediately for any new or worsening symptoms. Follow up with primary care provider, call tomorrow to make followup appointment. Prescriptions: Ibuprofen [Ibu] 600 mg PO Q6HP PRN #20 tablet PRN Reason: Referrals: SHAYAN CALIX MD [Primary Care Provider] - Follow up as needed SEEMA MARTINEZ JR, [ACTIVE PROVISIONAL STAFF] - Follow up as needed
[2019-04-26] MEDS ORDERED: KETOROLAC TROMETHAMINE 60 MG/2 ML SDV IM ONE (10:30)
--- NOTE | 2019-04-26 11:12 | RADIOLOGY REPORT (SQ) ---
EXAM DESCRIPTION: KNEE RIGHT 4 VIEWS COMPLETED DATE/TIME: 04/26/2019 9:47 am REASON FOR STUDY: knee swelling/increased knee pain COMPARISON: None. NUMBER OF VIEWS: Four views. TECHNIQUE: AP, lateral, and both oblique radiographic images acquired of the right knee. LIMITATIONS: None. FINDINGS: MINERALIZATION: Normal. BONES: No acute fracture or dislocation. No worrisome bone lesions. JOINT: No joint effusion. No intra-articular loose body. SOFT TISSUES: No soft tissue swelling. No radio-opaque foreign body. OTHER: No other significant finding. IMPRESSION: NEGATIVE STUDY OF THE RIGHT KNEE. NO RADIOGRAPHIC EVIDENCE OF ACUTE INJURY. TECHNICAL DOCUMENTATION: JOB ID: [id number] [employer]- All Rights Reserved Reading location - IP/workstation name: [id number]
[2019-04-26 13:02] VITALS: BP 139/70
== END 2019-04-26 13:02 | disposition home or self-care (01) ==
LOC: ER 08:09
DX: M25.561 Pain in right knee (principal); G89.29 Other chronic pain; M25.461 Effusion, right knee; Z98.890 Other specified postprocedural states; I10 Essential (primary) hypertension; J45.909 Unspecified asthma, uncomplicated; F17.200 Nicotine dependence, unspecified, uncomplicated
CPT/HCPCS: 99283; 96372; 73564; L1830; J1885

== ENCOUNTER → 2019-05-15 | Outpatient (CLI) | payer MEDICAID ==
[2019-05-15 09:28] LABS: ABSOLUTE EOSINOPHILS # (AUTO) 0.1 10^3/uL (0.0-0.6); ABSOLUTE LYMPHOCYTES (AUTO) 1.4 10^3/uL (0.5-4.7); ABSOLUTE MONOCYTES (AUTO) 0.4 10^3/uL (0.1-1.4); ABSOLUTE NEUT (AUTO) 3.2 10^3/uL (1.7-8.2); BASOPHILS % (AUTO) 0.5 % (0-2); EOSINOPHILS % (AUTO) 1.2 % (0-6); HEMATOCRIT 33.2 % (36.0-47.0); HEMOGLOBIN 11.4 g/dL (12.0-15.5); LYMPHOCYTES % (AUTO) 28.4 % (13-45); MEAN CORPUSCULAR HEMOGLOBIN 31.4 pg (27.0-33.4); MEAN CORPUSCULAR HGB CONC 34.5 g/dL (32.0-36.0); MEAN CORPUSCULAR VOLUME 91 fl (80-97); MONOCYTES % (AUTO) 7.1 % (3-13); PLATELET COUNT 261 10^3/uL (150-450); RED BLOOD COUNT 3.65 10^6/uL (3.72-5.28); SEGMENTED NEUTROPHILS % (AUTO) 62.8 % (42-78); TOTAL CELLS COUNTED % (AUTO) 100 %; WHITE BLOOD COUNT 5.1 10^3/uL (4.0-10.5)
[2019-05-15 09:55] LABS: IRON(TIBC) 59.4 ug/dL (37-170)
[2019-05-15 10:27] LABS: FERRITIN 7.99 ng/mL (11.1-264.0)
== END ==
LOC: OD 08:40
PROVIDERS: ATTEND Family Medicine
DX: R53.83 Other fatigue (principal); R68.89 Other general symptoms and signs
CPT/HCPCS: 36415; 82728; 83540; 83550; 84443; 85025

== ENCOUNTER → 2019-06-07 | Outpatient (CLI) | payer MEDICAID ==
--- NOTE | 2019-06-07 12:43 | RADIOLOGY REPORT (SQ) ---
EXAM DESCRIPTION: MRI RT LOWER JOINT COMBO COMPLETED DATE/TIME: 06/07/2019 10:46 am REASON FOR STUDY: M25.561 PAIN IN RIGHT KNEE M25.561 PAIN IN RIGHT KNEE COMPARISON: Radiographs 04/26/2019 TECHNIQUE: Pre and post IV contrast rightknee images acquired and stored on PACS. Multiplanar image s include fat sensitive sequences as T1, water sensitive sequences as FST2 or STIR, cartilage sensiti ve sequences as FSPD, and gradient echo sequences. Contrast amount and type not provided by the technologist. LIMITATIONS: None. FINDINGS: JOINT AND BURSAE: No significant joint effusion. BONE CORTEX AND MARROW: Speckled marrow pattern likely scattered red marrow a islands. Doubtful sign ificance. No fracture or worrisome edema or mass. ACL: Intact. PCL: Intact. MCL: Intact. LCL: Intact. MEDIAL MENISCUS: Blunting along the free margin posterior horn. No extrusion. LATERAL MENISCUS: No tears. No abnormal signal. MEDIAL COMPARTMENT: No focal chondral lesions or reactive changes. LATERAL COMPARTMENT: No focal chondral lesions or reactive changes. PATELLA: Normal location. Chondral thinning without focal defects. EXTENSOR MECHANISM: Generally intact. SOFT TISSUES: Lobulated mass along the medial knee extending predominantly cranially with respect to the knee joint. This has a loculated appearance along its inferior extent with what appears to be a tail of fluid tracking back to communicate with the expected location of Kat's cyst origin. The le tao extends up to almost 8 cm craniocaudal no suspicious or enhancing solid component. Soft tissues otherwise unremarkable. OTHER: No other significant finding. IMPRESSION: 1. Mild medial meniscus changes. Unless the patient has had previous surgery, likely mild tear along the free margin. 2. 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 No suspicious features. TECHNICAL DOCUMENTATION: JOB ID: [id number] 2010 [employer]- All Rights Reserved Reading location - IP/workstation name: [email or web address] MACHINE OPER[email or web address]
== END ==
LOC: RAD 09:40
PROVIDERS: ATTEND Orthopaedic Surgery
DX: M71.21 Synovial cyst of popliteal space [Baker], right knee (principal); M25.561 Pain in right knee
CPT/HCPCS: 82565; 73723; A9576

== ENCOUNTER 2019-07-06 16:35 | Emergency (ER) | payer MEDICAID ==
--- NOTE | 2019-07-06 16:47 | EKG REPORT ---
SEVERITY:- BORDERLINE ECG - SINUS TACHYCARDIA BORDERLINE T ABNORMALITIES, INFERIOR LEADS : Confirmed by: Ricarda Cadena 06-Jul-2019 16:46:43
[2019-07-06 16:54] VITALS: BP 124/90
[2019-07-06] MEDS ORDERED: ASPIRIN 81 MG TABLET, CHEWABLE PO ONE (16:55)
--- NOTE | 2019-07-06 16:56 | ER Document Report ---
ED Medical Screen (RME) - General Chief Complaint: Chest Pain Stated Complaint: CHEST PAIN Time Seen by Provider: 07/06/19 16:50 Primary Care Provider: SHAYAN CALIX MD [Primary Care Provider] - Follow up as needed Mode of Arrival: Wheelchair Information source: Patient Notes: 59-year-old female presents with complaints of left-sided chest pain since . Reports it comes and goes comes and goes. Reports she went to see her provider Dr. Calix and was sent over here because she may have had a heart attack. No other complaints such as nausea fever vomiting diarrhea. No history of GA. Patient reports she takes aspirin every night. She has not taken it today. I have greeted and performed a rapid initial assessment of this patient. A comprehensive ED assessment and evaluation of the patient, analysis of test results and completion of the medical decision making process will be conducted by additional ED providers. TRAVEL OUTSIDE OF THE [place] IN LAST 30 DAYS: No - Related Data Allergies/Adverse Reactions: codeine Allergy (Verified 07/06/19 16:50) STILL - so bad it caused a seizure, eye swelling erythromycin base Allergy (Verified 07/06/19 16:50) rash oxycodone [From Percocet] Allergy (Verified 07/06/19 16:50) emesis Penicillins Allergy (Verified 07/06/19 16:50) rash kepra Allergy (Uncoded 07/06/19 16:50) Steroids Allergy (Uncoded 07/06/19 16:50) Tachycardia Bandaids Adverse Reaction (Uncoded 07/06/19 16:50) Rash if left on too long Surgical tape Adverse Reaction (Uncoded 07/06/19 16:50) rash Past Medical History - Social History Chew tobacco use (# tins/day): No Frequency of alcohol use: None Drug Abuse: None - Past Medical History Cardiac Medical History: Reports: Hx Hypertension Denies: Hx Coronary Artery Disease, Hx Heart Attack Pulmonary Medical History: Reports: Hx Asthma - Not using medications until they find source of tachycardia , Hx Pneumonia - A few times Denies: Hx Bronchitis, Hx COPD Neurological Medical History: Reports: Hx Seizures. Denies: Hx Cerebrovascular Accident Renal/ Medical History: Denies: Hx Peritoneal Dialysis Musculoskeltal Medical History: Denies Hx Arthritis Past Surgical History: Reports: Hx Orthopedic Surgery - left knee - Immunizations Hx Diphtheria, Pertussis, Tetanus Vaccination: Yes Doctor's Discharge - Discharge Referrals: SHAYAN CALIX MD [Primary Care Provider] - Follow up as needed
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
[2019-07-06 18:02] LABS: ABSOLUTE EOSINOPHILS # (AUTO) 0.1 10^3/uL (0.0-0.6); ABSOLUTE LYMPHOCYTES (AUTO) 1.8 10^3/uL (0.5-4.7); ABSOLUTE MONOCYTES (AUTO) 0.6 10^3/uL (0.1-1.4); ABSOLUTE NEUT (AUTO) 4.3 10^3/uL (1.7-8.2); BASOPHILS % (AUTO) 0.4 % (0-2); EOSINOPHILS % (AUTO) 1.2 % (0-6); HEMOGLOBIN 12.2 g/dL (12.0-15.5); LYMPHOCYTES % (AUTO) 26.6 % (13-45); MEAN CORPUSCULAR HEMOGLOBIN 31.1 pg (27.0-33.4); MEAN CORPUSCULAR HGB CONC 34.8 g/dL (32.0-36.0); MEAN CORPUSCULAR VOLUME 89 fl (80-97); MONOCYTES % (AUTO) 8.4 % (3-13); PLATELET COUNT 319 10^3/uL (150-450); RED BLOOD COUNT 3.91 10^6/uL (3.72-5.28); RED CELL DISTRIBUTION WIDTH 14.6 % (11.5-14.0); SEGMENTED NEUTROPHILS % (AUTO) 63.4 % (42-78); TOTAL CELLS COUNTED % (AUTO) 100 %; WHITE BLOOD COUNT 6.9 10^3/uL (4.0-10.5)
[2019-07-06 18:21] LABS: ALBUMIN 4.1 g/dL (3.5-5.0); ALKALINE PHOSPHATASE 162 U/L (38-126); ANION GAP 6 (5-19); ASPARTATE AMINO TRANSFERASE 35 U/L (14-36); BILIRUBIN,TOTAL 0.2 mg/dL (0.2-1.3); BLOOD UREA NITROGEN 7 mg/dL (7-20); CALCIUM 8.9 mg/dL (8.4-10.2); CARBON DIOXIDE 31 mmol/L (22-30); CHLORIDE 103 mmol/L (98-107); GLUCOSE 109 mg/dL (75-110); POTASSIUM 3.9 mmol/L (3.6-5.0); TOTAL PROTEIN 7.2 g/dL (6.3-8.2)
== END 2019-07-06 19:22 | disposition left against medical advice (07) ==
LOC: ER 16:35
DX: R07.9 Chest pain, unspecified (principal); I10 Essential (primary) hypertension; Z88.6 Allergy status to analgesic agent; Z88.3 Allergy status to other anti-infective agents; Z88.0 Allergy status to penicillin
CPT/HCPCS: 36415; 71045; 80053; 84484; 85025; 93005; 93010; 99281

== ENCOUNTER → 2019-09-27 | Outpatient (CLI) | payer MEDICAID ==
--- NOTE | 2019-09-27 14:15 | ER RDC ASSESSMENT REPORT ---
Intake - In the Last 14 days Have you traveled outside [place]?: No Have you been in close contact with someone CONFIRMED: No Worked in Healthcare?: No - Symptoms Subjective Fever([place] feverish): No Chills: No Muscule Aches: No Runny Nose: No Sore Throat: No Cough (New or worsening chronic cough): No Shortness of breath: No Nausea or Vomiting: No Headache: No Abdominal Pain: No Diarrhea(3 or more loose stools in last 24 hours): Yes - Do you have any of the following Chronic lung disease: Asthma or emphysema or COPD: No Cystic Fibrosis: No Diabetes: No High Blood Pressure: Yes Cardiovascular Disease: Yes Chronic Kidney Disease: No Chronic Liver Disease: No Chronic blood disorder like Sickle Cell Disease: No Weak immune system due to disease or medication: No Neurologic condition that limits movement: No Developmental delay - Moderate to Severe: No Recent (within past 2 weeks) or current : No Morbid Obesity (>100 pounds over ideal weight): No - Objective Vital Signs: 5'5", 123 lb Temperature: 97.1 F Pulse Rate: 71 Respiratory Rate: 20 Blood Pressure: 102/50 O2 Sat by Pulse Oximetry: 94 Objective: Given above, testing performed: Flu strep COVID Disposition: Home; Selfcare General - General Chief Complaint: Diarrhea Time Seen by Provider: 09/27/19 13:00 Mode of Arrival: Ambulatory Information source: Patient - HPI Notes: 59-year-old female presents to [facility] clinic for COVID-19 testing. Patient was referred over by [facility] physician for testing. Patient states she was recently diagnosed with strep throat and ear infection and has completed the antibiotics for those within the past week. Patient does have medical history significant for hypertension, tachycardia, current tobacco use and seizures. Patient reports only symptom at this time is diarrhea onset several days ago. No relieving factors. No exacerbating factors. Patient is denying any fever, chills, myalgia, rhinorrhea, sore throat, cough, shortness of breath, nausea or vomiting, headache or abdominal pain. Patient states she believes the diarrhea is simply related to being on an extended course of antibiotics but physician wanted her to be tested for COVID-19. - Related Data Allergies/Adverse Reactions: codeine Allergy (Verified 07/06/19 16:50) STILL - so bad it caused a seizure, eye swelling erythromycin base Allergy (Verified 07/06/19 16:50) rash oxycodone [From Percocet] Allergy (Verified 07/06/19 16:50) emesis Penicillins Allergy (Verified 07/06/19 16:50) rash kepra Allergy (Uncoded 07/06/19 16:50) Steroids Allergy (Uncoded 07/06/19 16:50) Tachycardia Bandaids Adverse Reaction (Uncoded 07/06/19 16:50) Rash if left on too long Surgical tape Adverse Reaction (Uncoded 07/06/19 16:50) rash Past Medical History - General Information source: Patient - Social History Smoking Status: Current Every Day Smoker Smoking Education Provided: Yes Lives with: Spouse/Significant other Family History: Reviewed & Not Pertinent - Past Medical History Cardiac Medical History: Reports: Hx Hypertension Denies: Hx Coronary Artery Disease, Hx Heart Attack Pulmonary Medical History: Reports: Hx Asthma - Not using medications until they find source of tachycardia , Hx Pneumonia - A few times Denies: Hx Bronchitis, Hx COPD EENT Medical History: Reports: None Neurological Medical History: Reports: Hx Seizures. Denies: Hx Cerebrovascular Accident Endocrine Medical History: Reports: None Renal/ Medical History: Reports: None. Denies: Hx Peritoneal Dialysis Malignancy Medical History: Reports: Hx Cervical Cancer Other: Celiac Musculoskeletal Medical History: Reports None, Denies Hx Arthritis Skin Medical History: Reports None Psychiatric Medical History: Reports: None Traumatic Medical History: Reports: None Infectious Medical History: Reports: None Past Surgical History: Reports: Hx Hysterectomy, Hx Orthopedic Surgery - left knee, Hx Tubal Ligation Physical Exam - General General appearance: Appears well In distress: None Notes: PHYSICAL EXAMINATION: GENERAL: Chronically ill -appearing but in no acute distress. HEAD: Atraumatic, normocephalic. EYES: sclera anicteric, conjunctiva are normal. ENT: nares patent. Moist mucous membranes. NECK: Normal range of motion, supple without lymphadenopathy LUNGS: CTAB and equal. No wheezes rales or rhonchi. Diminished bilateral bases. HEART: Regular rate and rhythm without murmurs ABDOMEN: Soft, nontender, normal bowel sounds, no guarding. EXTREMITIES: Normal range of motion, no pitting edema. No cyanosis. NEUROLOGICAL: Cranial nerves grossly intact. Normal speech. PSYCH: Normal mood, normal affect. SKIN: Warm, Dry, normal turgor, no rashes or lesions noted Diagnostic Results Laboratory Results: strep, flu negative Patient Education/Counseling Counseling/Education: Patient presents with diarrhea worrisome for possible Covid 19. Patient does not have emergency worrying symptoms such as difficulty breathing, shortness of breath, chest pain, pressure, confusion or cyanosis. Patient appears suitable for discharge as vital signs are stable and patient is nontoxic in appearance. Good return precautions have been discussed with patient, patient verbalized understanding and is agreeable with discharge plan of care at this time. Guidance for worsening S/SX: As a person under investigation for Covid 19, the [facility], division of public health advises you to adhere to the following guidance until your test results are reported to you. If your test result is positive, you will receive additional information from your provider and your local health department at that time. Remain at home until you are cleared by the health provider or public health authorities. Keep a log of visitors to your home, notify any visitors to your home of your isolation status. If you plan to move to a new address or leave the [facility], notify the local health department in your County. Call your doctor or seek care if you have an urgent medical need. Before seeking medical care, call ahead to get instructions from the provider before arriving at the medical office clinic or hospital. Notify them that you are being tested for the virus that causes Covid 19 so that arrangements can be made, as necessary, to prevent transmission to others in the healthcare setting. Next, notify the local health department in your county. If a medical emergency arises and you need to call 911, inform the first responders that you are being tested for the virus that causes Covid 19. Next, notify the local health department in your county. RDC Discharge - Discharge Clinical Impression: Encounter for screening laboratory testing for COVID-19 virus Diarrhea Qualifiers: Diarrhea type: unspecified type Qualified Code(s): R19.7 - Diarrhea, unspecified Condition: Stable Disposition: Home; Selfcare
[2019-09-27 15:40] LABS: A TYPE INFLUENZA AG NEGATIVE (NEGATIVE); B INFLUENZA AG NEGATIVE (NEGATIVE)
[2019-09-27 22:02] VITALS: BP 102/50
== END ==
LOC: RDC 12:46
PROVIDERS: ATTEND Registered Nurse
DX: Z20.828 Contact with and (suspected) exposure to other viral communicable diseases (principal); R19.7 Diarrhea, unspecified; I10 Essential (primary) hypertension; R56.9 Unspecified convulsions; F17.200 Nicotine dependence, unspecified, uncomplicated; Z88.1 Allergy status to other antibiotic agents; Z88.6 Allergy status to analgesic agent; Z88.0 Allergy status to penicillin; Z88.8 Allergy status to other drugs, medicaments and biological substances; Z91.048 Other nonmedicinal substance allergy status
CPT/HCPCS: 87070; 87804; 87880